=== PATIENT | female | born 1975 | race Caucasian/White ===

== ENCOUNTER 2020-07-16 14:43 | Emergency (ER) | payer MEDICAID ==
[~2020-07-16] VITALS: Ht 160 cm; Wt 61.2 kg
[~2020-07-16 14:43] MED LIST: AMLO5TAB PO; LOSA100T1 PO; POTA10TE30 PO
[2020-07-16 14:51] VITALS: BP 204/109
--- NOTE | 2020-07-16 14:55 | NUR ---
PT TAKEN TO CHAIR Dimple.
[2020-07-16] MEDS ORDERED: KETOROLAC 30 MG/ML VIAL IM ONE (15:35)
[2020-07-16 16:46] VITALS: BP 204/109
--- NOTE | 2020-07-16 16:47 | NUR ---
Patient discharged with v/s stable. Written and verbal after care instructions given and explained. Patient verbalized understanding. Ambulatory with steady gait. All questions addressed prior to discharge. Advised to follow up with PMD.
== END 2020-07-16 16:47 | disposition home or self-care (01) ==
LOC: MED 14:43
DX: S06.0X9A Concussion with loss of consciousness of unspecified duration, initial encounter (principal); S13.9XXA Sprain of joints and ligaments of unspecified parts of neck, initial encounter; I10 Essential (primary) hypertension; Z79.899 Other long term (current) drug therapy; R07.89 Other chest pain; V49.9XXA Car occupant (driver) (passenger) injured in unspecified traffic accident, initial encounter; Y93.89 Activity, other specified; Y92.89 Other specified places as the place of occurrence of the external cause; Y99.8 Other external cause status
CPT/HCPCS: 70450; 71045; 72125; 96372; 99285; J1885

== ENCOUNTER 2024-02-17 16:33 | Emergency (ER) | payer MEDICAID, OTHER ==
[~2024-02-17] VITALS: Ht 162.6 cm; Wt 61.3 kg
[~2024-02-17 16:33] MED LIST changes: +LOSA-272 PO; -LOSA100T1 PO; +POTA10TA70 PO; -POTA10TE30 PO
[2024-02-17 17:01] VITALS: BP 152/66; PULSE 65; RESP 17; TEMP 98.5; O2SAT 98
[2024-02-17 17:33] LABS: BASOPHILS # (AUTO) 0.1 K/uL (0.00-0.22); BASOPHILS % (AUTO) 0.7 % (0.0-2.0); EOSINOPHILS # (AUTO) 0.1 K/uL (0-0.4); EOSINOPHILS % (AUTO) 1.1 % (0.0-4.0); HEMOGLOBIN 11.9 g/dL (12.0-16.0); LYMPHOCYTES % (AUTO) 35.1 % (20.5-51.1); MEAN CORPUSCULAR HEMOGLOBIN 31 pg (27-31); MEAN CORPUSCULAR HGB CONC 34 g/dL (33-37); MEAN CORPUSCULAR VOLUME 90.9 fL (80-94); MONOCYTES # (AUTO) 0.5 K/uL (0.8-1.0); MONOCYTES % (AUTO) 5.6 % (1.7-9.3); NEUTROPHILS % (AUTO) 57.5 % (42.2-75.2); PLATELET COUNT (AUTO) 241 K/uL (140-450); RED BLOOD CELL COUNT(AUTO) 3.85 MIL/uL (4.20-5.40); RED CELL DISTRIBUTION WIDTH 13.9 % (11.6-13.7); WHITE BLOOD COUNT (AUTO) 8.7 K/uL (4.8-10.8)
[2024-02-17 17:41] LABS: ANION GAP 7.2 (8-16); CALCIUM 9.2 mg/dL (8.5-10.1); CARBON DIOXIDE 35.8 mmol/L (21-32); CREATININE 0.9 mg/dL (0.6-1.3)
[2024-02-17 18:01] LABS: MAGNESIUM 1.9 mg/dL (1.8-2.4); PHOSPHORUS 3.6 mg/dL (2.5-4.9)
[2024-02-17] MEDS: POTASSIUM CHLORIDE 10 MEQ TABER PO ONE (18:15)
[2024-02-17 18:44] LABS: ALBUMIN 3.6 g/dL (3.4-5.0); BILIRUBIN,DIRECT 0.1 mg/dL (0.0-0.3); THYROID STIMULATING HORMONE 0.79 uIU/mL (0.34-3.74); TOTAL BILIRUBIN 0.3 mg/dL (0.0-1.0)
[2024-02-17] MEDS ORDERED: POTA10TA70 PO (19:16)
[2024-02-17 19:26] VITALS: BP 136/76; PULSE 65; RESP 16; TEMP 98.5; O2SAT 99
== END 2024-02-17 19:26 | disposition home or self-care (01) ==
LOC: MED 16:33
DX: E87.6 Hypokalemia (principal); R42 Dizziness and giddiness; R53.83 Other fatigue; T50.995A Adverse effect of other drugs, medicaments and biological substances, initial encounter; I10 Essential (primary) hypertension; Z79.899 Other long term (current) drug therapy; Y92.89 Other specified places as the place of occurrence of the external cause
CPT/HCPCS: 36415; 80048; 80076; 82550; 83735; 84100; 84443; 85025; 93005; 99284

== ENCOUNTER 2024-03-15 14:55 | Inpatient (IN) | payer OTHER ==
[~2024-03-15] VITALS: Ht 165.1 cm; Wt 64.5 kg
[2024-03-15 15:01] VITALS: BP 154/92; PULSE 62; RESP 13; TEMP 97.8; O2SAT 98
[2024-03-15 15:15] VITALS: O2SAT 98
[2024-03-15 15:34] LABS: BASOPHILS % (AUTO) 0.6 % (0.0-2.0); EOSINOPHILS # (AUTO) 0.1 K/uL (0-0.4); HEMATOCRIT 31.5 % (36-48); HEMOGLOBIN 11.1 g/dL (12.0-16.0); LYMPHOCYTES # (AUTO) 2.4 K/uL (2.5-16.5); LYMPHOCYTES % (AUTO) 30.2 % (20.5-51.1); MEAN CORPUSCULAR HEMOGLOBIN 32 pg (27-31); MEAN CORPUSCULAR HGB CONC 35 g/dL (33-37); MEAN CORPUSCULAR VOLUME 90.1 fL (80-94); MONOCYTES # (AUTO) 0.5 K/uL (0.8-1.0); MONOCYTES % (AUTO) 6.7 % (1.7-9.3); NEUTROPHILS # (AUTO) 4.9 K/uL (1.8-7.7); NEUTROPHILS % (AUTO) 61.5 % (42.2-75.2); PLATELET COUNT (AUTO) 237 K/uL (140-450); RED CELL DISTRIBUTION WIDTH 13.3 % (11.6-13.7); WHITE BLOOD COUNT (AUTO) 7.9 K/uL (4.8-10.8)
[2024-03-15 16:21] LABS: ALBUMIN 3.2 g/dL (3.4-5.0); ANION GAP 10.3 (8-16); CALCIUM 8.9 mg/dL (8.5-10.1); CARBON DIOXIDE 32.3 mmol/L (21-32); CREATININE 0.9 mg/dL (0.6-1.3); TOTAL BILIRUBIN 0.3 mg/dL (0.0-1.0); TOTAL PROTEIN, SERUM 6.6 g/dL (6.4-8.2)
[2024-03-15 16:26] LABS: POTASSIUM 1.6 mmol/L (3.5-5.1)
[2024-03-15] MEDS: POTASSIUM CHLORIDE 10 MEQ TABER PO ONE (16:55)
[2024-03-15] MEDS ORDERED: CRUSHER, PILL MC ONE (16:57)
[2024-03-15] MEDS ORDERED: MORPHINE SULFATE 4 MG/ML SYR IVP PRN (17:10)
[2024-03-15] MEDS ORDERED: ONDANSETRON 4 MG/2 ML VIAL IVP PRN (17:10)
[2024-03-15] MEDS ORDERED: ACETAMINOPHEN 325 MG TAB PO PRN (17:10)
[2024-03-15] MEDS ORDERED: HYDROcodone/APAP 5/325 MG 1 TAB TAB PO PRN (17:10)
[2024-03-15] MEDS: POTASSIUM CHL 40 MEQ/ D5-1/2NS 1,000 ML IV ONE (17:13)
[2024-03-15] MEDS ORDERED: METF-1139 PO (17:17)
[2024-03-15] MEDS ORDERED: CHOL200035 PO (17:17)
[2024-03-15] MEDS: POTASSIUM CHLORIDE 10 MEQ TABER PO SCH (17:29)
[2024-03-15] MEDS: LOSARTAN 50 MG TAB PO SCH (18:05)
[2024-03-15] MEDS: NACL 0.9% 1,000 ML IV SCH (18:05)
[2024-03-15] MEDS: KCL 20 MEQ IN 100 mL PREMIX 200 ML IV PRN (18:11)
[2024-03-15 18:31] VITALS: PULSE 77
[2024-03-15 19:00] VITALS: BP 149/89; PULSE 58; RESP 21; TEMP 97.5; O2SAT 98
[2024-03-15 19:55] VITALS: PULSE 62
[2024-03-15] MEDS: MAGNESIUM OXIDE 400 MG TAB PO PRN (20:07)
[2024-03-16] VITALS: BP 128/73; PULSE 56; PULSE 62; RESP 19; TEMP 97.6; O2SAT 97
[2024-03-16 04:00] VITALS: BP 130/70; PULSE 51; PULSE 54; RESP 19; TEMP 97.6; O2SAT 97
[2024-03-16 06:55] LABS: BASOPHILS % (AUTO) 0.6 % (0.0-2.0); EOSINOPHILS # (AUTO) 0.1 K/uL (0-0.4); EOSINOPHILS % (AUTO) 1.1 % (0.0-4.0); HEMATOCRIT 31.1 % (36-48); HEMOGLOBIN 10.9 g/dL (12.0-16.0); LYMPHOCYTES # (AUTO) 2.3 K/uL (2.5-16.5); LYMPHOCYTES % (AUTO) 35.2 % (20.5-51.1); MEAN CORPUSCULAR HEMOGLOBIN 32 pg (27-31); MEAN CORPUSCULAR HGB CONC 35 g/dL (33-37); MEAN CORPUSCULAR VOLUME 90.3 fL (80-94); MONOCYTES # (AUTO) 0.5 K/uL (0.8-1.0); MONOCYTES % (AUTO) 7.5 % (1.7-9.3); NEUTROPHILS # (AUTO) 3.7 K/uL (1.8-7.7); NEUTROPHILS % (AUTO) 55.6 % (42.2-75.2); PLATELET COUNT (AUTO) 215 K/uL (140-450); RED BLOOD CELL COUNT(AUTO) 3.44 MIL/uL (4.20-5.40); RED CELL DISTRIBUTION WIDTH 13.2 % (11.6-13.7); WHITE BLOOD COUNT (AUTO) 6.7 K/uL (4.8-10.8)
[2024-03-16 07:01] LABS: ANION GAP 9.4 (8-16); CALCIUM 8.7 mg/dL (8.5-10.1); CARBON DIOXIDE 32.8 mmol/L (21-32); CREATININE 0.8 mg/dL (0.6-1.3)
[2024-03-16 07:33] LABS: POTASSIUM 2.2 mmol/L (3.5-5.1)
[2024-03-16 08:00] VITALS: BP 136/56; PULSE 57; PULSE 59; RESP 18; TEMP 98.6; O2SAT 97
[2024-03-16] MEDS: ENOXAPARIN 40 MG/0.4 ML SYR SUBQ SCH (09:21)
[2024-03-16] MEDS ORDERED: INSULIN LISPRO SLIDING SCALE 100 UNITS/ML VIAL SUBQ PRN (11:15)
[2024-03-16] MEDS ORDERED: DEXTROSE 50% 50 ML SYR IVP PRN (11:15)
[2024-03-16] MEDS: POTASSIUM CHLORIDE 40 MEQ, LIDOCAINE 1% 25 MG in NACL 0.9% 250 ML IV PRN (11:25)
[2024-03-16] MEDS: BLOOD GLUCOSE MONITORING 1 DEV DEV FS SCH (11:31)
[2024-03-16 16:00] VITALS: BP_SYST 140; BP_SYST 153; BP_DIAS 79; BP_DIAS 83; PULSE 55; RESP 19; TEMP 98.8; O2SAT 95
[2024-03-16] MEDS: MAG SULF 2000 MG/WATER PREMIX 50 ML IV SCH (16:12)
[2024-03-16 18:17] LABS: ANION GAP 8.7 (8-16); CALCIUM 8.8 mg/dL (8.5-10.1); CARBON DIOXIDE 32.6 mmol/L (21-32); CREATININE 0.8 mg/dL (0.6-1.3)
[2024-03-16 18:19] LABS: POTASSIUM 2.3 mmol/L (3.5-5.1)
[2024-03-16] MEDS: POTASSIUM CHLORIDE 10 MEQ TABER PO PRN (18:30)
[2024-03-16 20:00] VITALS: PULSE 58; RESP 20; O2SAT 100
[2024-03-16] MEDS: MEDS-TO-BEDS MC SCH (20:40)
[2024-03-17 04:00] VITALS: BP 122/63; PULSE 57; RESP 18; TEMP 97.7; O2SAT 95
[2024-03-17 07:30] LABS: BASOPHILS % (AUTO) 0.6 % (0.0-2.0); EOSINOPHILS # (AUTO) 0.1 K/uL (0-0.4); EOSINOPHILS % (AUTO) 0.9 % (0.0-4.0); HEMATOCRIT 35.4 % (36-48); LYMPHOCYTES # (AUTO) 2.4 K/uL (2.5-16.5); LYMPHOCYTES % (AUTO) 31.8 % (20.5-51.1); MEAN CORPUSCULAR HEMOGLOBIN 31 pg (27-31); MEAN CORPUSCULAR HGB CONC 34 g/dL (33-37); MEAN CORPUSCULAR VOLUME 91.7 fL (80-94); MONOCYTES # (AUTO) 0.4 K/uL (0.8-1.0); MONOCYTES % (AUTO) 6.1 % (1.7-9.3); NEUTROPHILS # (AUTO) 4.5 K/uL (1.8-7.7); NEUTROPHILS % (AUTO) 60.6 % (42.2-75.2); PLATELET COUNT (AUTO) 238 K/uL (140-450); RED BLOOD CELL COUNT(AUTO) 3.85 MIL/uL (4.20-5.40); RED CELL DISTRIBUTION WIDTH 13.4 % (11.6-13.7); WHITE BLOOD COUNT (AUTO) 7.4 K/uL (4.8-10.8)
[2024-03-17 07:41] LABS: ANION GAP 9.5 (8-16); CALCIUM 8.6 mg/dL (8.5-10.1); CARBON DIOXIDE 30.2 mmol/L (21-32); CREATININE 0.7 mg/dL (0.6-1.3)
[2024-03-17 07:45] LABS: POTASSIUM 2.7 mmol/L (3.5-5.1)
[2024-03-17 08:00] VITALS: BP 145/70; PULSE 53; PULSE 62; RESP 18; RESP 19; TEMP 97; O2SAT 97; O2SAT 99
[2024-03-17 11:22] VITALS: O2SAT 99
[2024-03-17 16:00] VITALS: BP 150/79; PULSE 62; RESP 18; TEMP 97.7; O2SAT 99
[2024-03-17 16:03] LABS: ANION GAP 9.6 (8-16); CALCIUM 8.5 mg/dL (8.5-10.1); CARBON DIOXIDE 28.2 mmol/L (21-32); CREATININE 0.7 mg/dL (0.6-1.3)
[2024-03-17 16:12] LABS: POTASSIUM 2.8 mmol/L (3.5-5.1)
[2024-03-17 17:03] LABS: APPEARANCE,URINE CLEAR (CLEAR); BILIRUBIN,URINE NEGATIVE (NEGATIVE); BLOOD, URINE NEGATIVE (NEGATIVE); COLOR,URINE YELLOW (YELLOW); LEUKOCYTE ESTERASE ,URINE NEGATIVE (NEGATIVE); NITRITE, URINE NEGATIVE (NEGATIVE); PROTEIN,URINE NEGATIVE (NEGATIVE); UGLUCOSE NEGATIVE (NEGATIVE); UROBILINOGEN,URINE 0.2 EU/dL (0.2 - 1)
[2024-03-17] MEDS: POTASSIUM CHLORIDE 10 MEQ TABER PO SCH (17:18)
[2024-03-17 20:00] VITALS: BP 154/62; PULSE 54; RESP 18; TEMP 97.9; O2SAT 96
[2024-03-18 04:00] VITALS: BP 139/54; PULSE 59; RESP 16; TEMP 97.8; O2SAT 98
[2024-03-18 07:24] LABS: BASOPHILS % (AUTO) 0.7 % (0.0-2.0); EOSINOPHILS # (AUTO) 0.1 K/uL (0-0.4); EOSINOPHILS % (AUTO) 1.5 % (0.0-4.0); HEMATOCRIT 33.2 % (36-48); HEMOGLOBIN 11.2 g/dL (12.0-16.0); LYMPHOCYTES # (AUTO) 2.2 K/uL (2.5-16.5); LYMPHOCYTES % (AUTO) 34.4 % (20.5-51.1); MEAN CORPUSCULAR HEMOGLOBIN 31 pg (27-31); MEAN CORPUSCULAR HGB CONC 34 g/dL (33-37); MEAN CORPUSCULAR VOLUME 92.8 fL (80-94); MONOCYTES # (AUTO) 0.4 K/uL (0.8-1.0); NEUTROPHILS # (AUTO) 3.6 K/uL (1.8-7.7); NEUTROPHILS % (AUTO) 57.4 % (42.2-75.2); PLATELET COUNT (AUTO) 219 K/uL (140-450); RED BLOOD CELL COUNT(AUTO) 3.58 MIL/uL (4.20-5.40); RED CELL DISTRIBUTION WIDTH 13.3 % (11.6-13.7); WHITE BLOOD COUNT (AUTO) 6.3 K/uL (4.8-10.8)
[2024-03-18 07:45] LABS: CALCIUM 8.2 mg/dL (8.5-10.1); CARBON DIOXIDE 26.3 mmol/L (21-32); CREATININE 0.6 mg/dL (0.6-1.3); POTASSIUM 3.3 mmol/L (3.5-5.1)
[2024-03-18 08:00] VITALS: BP 136/89; PULSE 54; PULSE 81; RESP 18; TEMP 96.8; O2SAT 96; O2SAT 99
[2024-03-18 12:00] VITALS: BP 130/80; PULSE 81; RESP 20; TEMP 97.1; O2SAT 98
[2024-03-18] MEDS ORDERED: POTASSIUM CHLORIDE 10 MEQ TABER PO ONE (13:30)
[2024-03-18] MEDS: MAG SULF 2000 MG/WATER PREMIX 50 ML IV SCH (14:44)
[2024-03-18 16:00] VITALS: BP 135/75; PULSE 78; RESP 19; TEMP 97; O2SAT 99
[2024-03-18 17:19] VITALS: O2SAT 96; O2SAT 99
[2024-03-18 20:00] VITALS: PULSE 66; RESP 18; O2SAT 97
[2024-03-18 23:39] LABS: CREATININE,URINE RANDOM 19 mg/dL (30-125)
[2024-03-18 23:40] LABS: POTASSIUM TIMED,URINE 10 mmol/L (12-75); POTASSIUM U,24HR CALC 49 mmol/24H (25-150); TOTAL VOLUME 24HRS,URINE 4900 mL
[2024-03-18 23:50] LABS: COLLECTION TIME,URINE 24 HR
[2024-03-19 04:00] VITALS: BP 137/72; PULSE 58; RESP 16; TEMP 98.3; O2SAT 99
[2024-03-19 07:08] LABS: BASOPHILS # (AUTO) 0.1 K/uL (0.00-0.22); BASOPHILS % (AUTO) 0.6 % (0.0-2.0); EOSINOPHILS # (AUTO) 0.2 K/uL (0-0.4); EOSINOPHILS % (AUTO) 1.9 % (0.0-4.0); HEMATOCRIT 30.3 % (36-48); HEMOGLOBIN 10.5 g/dL (12.0-16.0); LYMPHOCYTES # (AUTO) 2.8 K/uL (2.5-16.5); LYMPHOCYTES % (AUTO) 36.1 % (20.5-51.1); MEAN CORPUSCULAR HEMOGLOBIN 32 pg (27-31); MEAN CORPUSCULAR HGB CONC 35 g/dL (33-37); MEAN CORPUSCULAR VOLUME 91.8 fL (80-94); MONOCYTES # (AUTO) 0.5 K/uL (0.8-1.0); NEUTROPHILS # (AUTO) 4.3 K/uL (1.8-7.7); NEUTROPHILS % (AUTO) 55.4 % (42.2-75.2); PLATELET COUNT (AUTO) 206 K/uL (140-450); RED CELL DISTRIBUTION WIDTH 13.4 % (11.6-13.7); WHITE BLOOD COUNT (AUTO) 7.8 K/uL (4.8-10.8)
[2024-03-19 07:14] LABS: ANION GAP 9.8 (8-16); CARBON DIOXIDE 27.3 mmol/L (21-32); CREATININE 0.6 mg/dL (0.6-1.3); POTASSIUM 3.1 mmol/L (3.5-5.1)
[2024-03-19 08:00] VITALS: PULSE 51
[2024-03-19] MEDS: POTASSIUM CHLORIDE 10 MEQ TABER PO SCH (10:02)
[2024-03-19] MEDS: SPIRONOLACTONE 25 MG TAB PO SCH (10:10)
[2024-03-19 12:07] VITALS: BP 128/60; PULSE 51; RESP 18; TEMP 99; O2SAT 99
[2024-03-19] MEDS ORDERED: SPIR25TA PO (15:14)
[2024-03-19] MEDS ORDERED: LOSA-272 PO (15:14)
[2024-03-19 15:42] VITALS: BP 128/60; PULSE 51; RESP 18; TEMP 99
== END 2024-03-19 16:35 | disposition home or self-care (01) | DRG 425 ==
LOC: MED 14:55 → OBSVTOIN 17:12 → MTU 17:12
PROVIDERS: ADMIT Student in an Organized Health Care Education/Training Program; ATTEND Student in an Organized Health Care Education/Training Program
DX: E87.6 Hypokalemia (principal); E44.1 Mild protein-calorie malnutrition; E78.5 Hyperlipidemia, unspecified; E83.42 Hypomagnesemia; I10 Essential (primary) hypertension; Z82.49 Family history of ischemic heart disease and other diseases of the circulatory system; Z79.899 Other long term (current) drug therapy; Z79.84 Long term (current) use of oral hypoglycemic drugs; Z68.23 Body mass index [BMI] 23.0-23.9, adult
CPT/HCPCS: 36415; 80048; 80053; 81003; 82436; 82570; 82948; 83735; 84133; 85025; 87081; 93005; J1650; J1815; J2003; J3475; J3480; J7030